=== PATIENT | male | born 1970 | race Caucasian/White ===

== ENCOUNTER 2016-05-30 07:51 | Day surgery (SDC) | payer OTHER ==
[~2016-05-30 07:51] MED LIST: LIDOCAINE HCL 1% MPF SOL ONE; PROPOFOL 500 MG/50 ML EMU IV ONE
[2016-05-30 09:49] VITALS: TEMP 97.4
[2016-05-30 10:13] VITALS: RESP 20
[2016-05-30 10:29] VITALS: BP 121/84; PULSE 75; O2SAT 96
== END 2016-05-30 11:40 | disposition home or self-care (01) | DRG 392 ==
LOC: SURG 07:51
PROVIDERS: ATTEND Internal Medicine Gastroenterology
DX: K21.0 Gastro-esophageal reflux disease with esophagitis (principal); Q39.8 Other congenital malformations of esophagus; K22.2 Esophageal obstruction; K44.9 Diaphragmatic hernia without obstruction or gangrene; K29.50 Unspecified chronic gastritis without bleeding
CPT/HCPCS: 99001; J2001; J2704

== ENCOUNTER 2017-02-20 09:46 | Day surgery (SDC) | payer OTHER ==
[2017-02-20 12:15] VITALS: TEMP 97.3
[2017-02-20 12:43] VITALS: RESP 20
[2017-02-20 12:49] VITALS: BP 112/79; PULSE 76; O2SAT 98
== END 2017-02-20 13:20 | disposition home or self-care (01) | DRG 392 ==
LOC: SURG 09:46
PROVIDERS: ATTEND Internal Medicine Gastroenterology
DX: K21.9 Gastro-esophageal reflux disease without esophagitis (principal); K22.2 Esophageal obstruction; K22.10 Ulcer of esophagus without bleeding; K44.9 Diaphragmatic hernia without obstruction or gangrene
CPT/HCPCS: 99001; J2001; J2704

== ENCOUNTER 2017-04-24 08:03 | Day surgery (SDC) | payer OTHER ==
[~2017-04-24 08:03] MED LIST changes: +LIDOCAINE HCL 1% MPF 30 SOL ONE; -LIDOCAINE HCL 1% MPF SOL ONE
[2017-04-24 09:21] VITALS: TEMP 99
[2017-04-24 09:52] VITALS: RESP 20
[2017-04-24 10:02] VITALS: BP 112/74; PULSE 62; O2SAT 92
== END 2017-04-24 10:18 | disposition home or self-care (01) | DRG 392 ==
LOC: SURG 08:03
PROVIDERS: ATTEND Internal Medicine Gastroenterology
DX: K21.9 Gastro-esophageal reflux disease without esophagitis (principal); K22.2 Esophageal obstruction; Z87.19 Personal history of other diseases of the digestive system; K44.9 Diaphragmatic hernia without obstruction or gangrene
CPT/HCPCS: J2001; J2704